=== PATIENT | female | born 1995 | race Hispanic/Latino ===

== ENCOUNTER 2018-04-15 20:20 | Inpatient (IN) | payer MEDICAID | END 2018-04-18 15:20 | disposition home or self-care (01) | LOC: LDH 20:20 → WSH 04-17 00:30 | PROC: 10E0XZZ Delivery of Products of Conception, External Approach (ICD-10-PCS; principal; ~2018-04-15) | DX: O80 Encounter for full-term uncomplicated delivery (principal); Z37.0 Single live birth; Z3A.00 Weeks of gestation of pregnancy not specified ==

== ENCOUNTER 2023-03-12 02:55 | Emergency (ER) | payer MEDICAID, OTHER ==
[~2023-03-12] VITALS: Ht 154.9 cm; Wt 62.6 kg
[2023-03-12 04:35] LABS: RAPID GROUP A STREP negative (NEGATIVE)
[2023-03-12 04:44] LABS: SARS-CoV-2, RNA, NAAT NEGATIVE SARS CoV-2 (NEGATIVE)
[2023-03-12 04:54] LABS: INFLUENZA TYPE A Negative For Type A (NEGATIVE)
[2023-03-12 05:02] LABS: INFLUENZA TYPE B Positive For Type B (NEGATIVE)
[2023-03-12] MEDS ORDERED: OSEL75 PO (08:15)
[2023-03-12] MEDS ORDERED: ACETAMINOPHEN 325 MG TAB PO ONE (08:30)
[2023-03-12] MEDS ORDERED: OSELTAMIVIR PHOSPHATE 75 MG CAP PO ONE (08:30)
[2023-03-12 08:31] VITALS: BP 120/76; PULSE 92; RESP 18; O2SAT 99
== END 2023-03-12 08:32 | disposition home or self-care (01) ==
LOC: EDH 02:55
DX: O23.43 Unspecified infection of urinary tract in pregnancy, third trimester (principal); N39.0 Urinary tract infection, site not specified; O99.513 Diseases of the respiratory system complicating pregnancy, third trimester; J10.1 Influenza due to other identified influenza virus with other respiratory manifestations; Z3A.29 29 weeks gestation of pregnancy; Z20.822 Contact with and (suspected) exposure to COVID-19
CPT/HCPCS: 87635; 87804; 87880

== ENCOUNTER 2023-06-11 10:15 | Inpatient (IN) | payer MEDICAID ==
[~2023-06-11] VITALS: Ht 154.9 cm; Wt 63.5 kg
[~2023-06-11 10:15] MED LIST: OSEL75 PO
[2023-06-11] MEDS ORDERED: OXYTOCIN-LR 30 UNITS/500ML 500 ML IV SCH (11:00)
[2023-06-11 11:05] LABS: HEMATOCRIT 37.5 % (36-48); MEAN CORPUSCULAR HEMOGLOBIN 26.4 pg (27.0-33.0); MEAN CORPUSCULAR HGB CONC 33.1 g/dL (32.0-36.0); MEAN CORPUSCULAR VOLUME 79.8 fL (79-99); RED BLOOD CELL COUNT(AUTO) 4.7 MIL/uL (4.00-5.50); RED CELL DISTRIBUTION WIDTH 14.6 % (11.0-15.5); WHITE BLOOD COUNT (AUTO) 7.1 K/uL (4.8-10.8)
[2023-06-11] MEDS: AMPICILLIN 2GM+NS 100ML 100 ML IV SCH (11:07)
[2023-06-11 11:15] LABS: AMPHET/METH SCREEN,URINE NEGATIVE (NEGATIVE); BARBITURATE SCREEN, URINE NEGATIVE (NEGATIVE); BENZODIAZEPINES SCREEN,URINE NEGATIVE (NEGATIVE); CANNABINOID SCREEN,URINE NEGATIVE (NEGATIVE); COCAINE SCREEN,URINE NEGATIVE (NEGATIVE); OPIATE SCREEN,URINE NEGATIVE (NEGATIVE); PHENCYCLIDINE SCREEN,URINE NEGATIVE (NEGATIVE)
[2023-06-11 11:17] LABS: APPEARANCE,URINE CLEAR (CLEAR); BILIRUBIN,URINE NEGATIVE (NEGATIVE); COLOR,URINE LIGHT-YELLOW (YELLOW); GLUCOSE, URINE (UA) NEGATIVE (NEGATIVE); KETONES,URINE NEGATIVE (NEGATIVE); LEUKOCYTE ESTERASE ,URINE NEGATIVE Leu/uL (NEGATIVE); NITRATE,URINE NEGATIVE (NEGATIVE); OCCULT BLOOD,URINE NEGATIVE (NEGATIVE); PH,URINE 6.5 (5.0-8.0); PROTEIN,URINE NEGATIVE (NEGATIVE); UROBILINOGEN,URINE 0.2 mg/dL (0.2-1.0)
[2023-06-11 11:19] LABS: ADD UA MICROSCOPIC NO
[2023-06-11] MEDS ORDERED: PREN-218 PO (11:24)
[2023-06-11] MEDS: LACTATED RINGERS 1000ML 1,000 ML IV PRN (11:51)
[2023-06-11 12:11] LABS: HIV 1&2 ANTIBODY Non-Reactive (Negative)
[2023-06-11 12:12] LABS: HIV-1 p24 Antigen Non-Reactive (Negative)
[2023-06-11] MEDS: MEPERIDINE-PF 50 MG/ML SYG IVP ONE (14:18)
[2023-06-11] MEDS: PROMETHAZINE HCL 25 MG/ML 1ML AMPULE IM ONE (14:21)
[2023-06-11] MEDS: AMPICILLIN 1GM+NS 50ML 50 ML IV SCH (15:00)
[2023-06-11] MEDS: OXYTOCIN-LR 30 UNITS/500ML 500 ML IV SCH ×2 (16:40→22:00)
[2023-06-11] MEDS ORDERED: ACETAMINOPHEN 325 MG TAB PO PRN (17:30)
[2023-06-11] MEDS ORDERED: BENZOCAINE/LANOLIN/ALOE VERA 60 ML AEROSOL TP PRN (17:30)
[2023-06-11] MEDS ORDERED: LANOLIN 30GM OINTMENT TP PRN (17:30)
[2023-06-11] MEDS ORDERED: WITCH HAZEL 1 PAD TP PRN (17:30)
[2023-06-11] MEDS ORDERED: ACETAMINOPHEN WITH CODEINE 1 TAB TAB PO PRN (17:30)
[2023-06-11 21:00] VITALS: BP 111/74; PULSE 81; RESP 18
[2023-06-12 00:30] VITALS: BP 101/72; PULSE 84; RESP 16
[2023-06-12 04:30] VITALS: BP 98/60; PULSE 78; RESP 16
[2023-06-12 06:56] LABS: HEMATOCRIT 32.2 % (36-48); MEAN CORPUSCULAR HEMOGLOBIN 26.3 pg (27.0-33.0); MEAN CORPUSCULAR HGB CONC 32.9 g/dL (32.0-36.0); MEAN CORPUSCULAR VOLUME 79.9 fL (79-99); RED BLOOD CELL COUNT(AUTO) 4.03 MIL/uL (4.00-5.50); RED CELL DISTRIBUTION WIDTH 14.6 % (11.0-15.5); WHITE BLOOD COUNT (AUTO) 13.5 K/uL (4.8-10.8)
[2023-06-12 07:30] VITALS: BP 107/56; PULSE 77; RESP 20
[2023-06-12] MEDS: IBUPROFEN 600 MG TABLET PO PRN (08:34)
[2023-06-12] MEDS: DOCUSATE SODIUM 100 MG CAP PO SCH (08:34)
[2023-06-12 11:15] VITALS: BP 109/68; PULSE 82; RESP 20
[2023-06-12 15:20] VITALS: BP 101/62; PULSE 79; RESP 20
[2023-06-12 15:34] LABS: RAPID PLASMA REAGIN NONREACTIVE (NONREACTIVE)
== END 2023-06-12 18:55 | disposition home or self-care (01) | DRG 560 ==
LOC: EDH 10:15 → LDH 10:16 → OBSVTOIN 10:16 → WSH 20:25
PROVIDERS: ADMIT Obstetrics & Gynecology; ATTEND Obstetrics & Gynecology
PROC: 10E0XZZ Delivery of Products of Conception, External Approach (ICD-10-PCS; principal; 2023-06-11)
PROC: 10907ZC Drainage of Amniotic Fluid, Therapeutic from Products of Conception, Via Natural or Artificial Opening (ICD-10-PCS; 2023-06-11)
DX: O48.0 Post-term pregnancy (principal); Z37.0 Single live birth; Z3A.41 41 weeks gestation of pregnancy
CPT/HCPCS: 36415; 80305; 81003; 85027; 86592; 86701; 86850; 86900; 86901; 87340; 87390; G0378; J0290; J2175; J2550; J7120